=== PATIENT | male | born 1955 | race Caucasian/White ===

== ENCOUNTER → 2018-04-27 | Outpatient (CLI) | payer OTHER ==
[~2018-04-27] MED LIST: HYDR-3240 PO; NONE PER PT
== END | disposition home or self-care (01) ==
LOC: STAR 10:47
PROVIDERS: ATTEND Surgery
DX: Z01.818 Encounter for other preprocedural examination (principal); K40.90 Unilateral inguinal hernia, without obstruction or gangrene, not specified as recurrent
CPT/HCPCS: 93005

== ENCOUNTER 2018-05-04 11:50 | Day surgery (SDC) | payer OTHER ==
[~2018-05-04] VITALS: Ht 170.2 cm; Wt 75.4 kg
[2018-05-04 12:43] VITALS: BP 146/83
[2018-05-04] MEDS ORDERED: BUPIVACAINE/PF 0.5% ONE (13:22)
[2018-05-04] MEDS ORDERED: MIDAZOLAM 1 MG/ML, 2ML ONE (13:36)
[2018-05-04] MEDS ORDERED: FENTANYL PF 250 MCG/5ML ONE (13:36)
[2018-05-04] MEDS ORDERED: LIDOCAINE 2% 100MG/5ML SYRINGE ONE (13:47)
[2018-05-04] MEDS ORDERED: EPHEDRINE 50 MG/ML, 1ML ONE (13:47)
[2018-05-04] MEDS ORDERED: PROCHLORPERAZINE 5 MG/ML, 2ML IM PRN (14:30)
[2018-05-04] MEDS ORDERED: KETOROLAC 30 MG/1 ML IV PRN (14:30)
[2018-05-04] MEDS ORDERED: MEPERIDINE/PF 25MG/0.5ML IVPush PRN (14:30)
[2018-05-04] MEDS ORDERED: MORPHINE SULFATE 4 MG/ML, 1ML IVPush PRN (14:30)
[2018-05-04] MEDS ORDERED: ONDANSETRON 2MG/ML, 2ML IV PRN (14:30)
[2018-05-04] MEDS ORDERED: HYDROmorphone 1 MG/ML, 1ML IV PRN (14:30)
[2018-05-04] MEDS ORDERED: ACETAMINOPHEN 325 MG TABLET PO PRN (14:30)
[2018-05-04] MEDS ORDERED: OXYcodone 5 MG/5 ML ORAL.SOL UDC PO PRN (14:30)
[2018-05-04] MEDS ORDERED: ONDANSETRON ODT 8 MG PO PRN (14:30)
[2018-05-04] MEDS ORDERED: CEFAZOLIN 1,000 MG ONE (14:34)
[2018-05-04] MEDS ORDERED: ROCURONIUM 10MG/ML,5ML ONE (14:34)
[2018-05-04] MEDS ORDERED: ONDANSETRON 2MG/ML, 2ML ONE (14:34)
[2018-05-04] MEDS ORDERED: PROPOFOL 10 MG/ML, 20ML ONE (14:34)
[2018-05-04] MEDS ORDERED: DEXAMETHASONE 4 MG/ML, 1ML ONE (14:34)
[2018-05-04] MEDS ORDERED: GLYCOPYRROLATE 0.2MG/1ML, 5ML ONE (14:34)
[2018-05-04] MEDS ORDERED: SUCCINYLCHOLINE 20 MG/ML, 10ML ONE (14:34)
[2018-05-04] MEDS ORDERED: NEOSTIGMINE 1 MG/ML, 10ML ONE (14:34)
[2018-05-04] MEDS ORDERED: OXYcodone 5 MG/5 ML ORAL.SOL UDC ONE (15:24)
[2018-05-04] MEDS ORDERED: FENTANYL PF 100 MCG/2ML ONE (15:24)
[2018-05-04] MEDS ORDERED: ACETAMINOPHEN 650 MG/20.3 ML UDC ONE (15:24)
[2018-05-04] MEDS: FENTANYL PF 100 MCG/2ML IV PRN ×3 (15:29→15:40)
== END 2018-05-04 19:20 | disposition home or self-care (01) ==
LOC: OUT 11:50
PROVIDERS: ATTEND Surgery
DX: K40.90 Unilateral inguinal hernia, without obstruction or gangrene, not specified as recurrent (principal); D17.6 Benign lipomatous neoplasm of spermatic cord; Z87.891 Personal history of nicotine dependence; Z72.89 Other problems related to lifestyle
CPT/HCPCS: 49650; J0330; J0690; J1100; J2250; J2405; J2704; J2710; J3010; J3490; S2900; C1781

== ENCOUNTER 2018-05-05 04:21 | Emergency (ER) | payer OTHER ==
[~2018-05-05] VITALS: Ht 170.2 cm; Wt 77.7 kg
[2018-05-05] MEDS ORDERED: LIDOCAINE 2%,20 ML JEL.PF.APP MM ONE (05:30)
[2018-05-05 05:37] LABS: MICROSCOPIC NOT IND
[2018-05-05 05:38] LABS: CULTURE INDICATED? NO
[2018-05-05 06:01] VITALS: BP 133/70
== END 2018-05-05 06:19 | disposition home or self-care (01) ==
LOC: ED 04:45
DX: N99.89 Other postprocedural complications and disorders of genitourinary system (principal)
CPT/HCPCS: 51702; 81003; 99283; 99284